=== PATIENT | male | born 1960 | race Caucasian/White ===

== ENCOUNTER 2023-10-01 14:22 | Inpatient (IN) | payer SELFPAY ==
[~2023-10-01] VITALS: Ht 170.2 cm; Wt 84.1 kg
[~2023-10-01 14:22] MED LIST: NAPROSYN500 MG PO; NO HOME MEDICATIONS; PERCOCET 325 MG1 TA2 PO
[2023-10-01 14:23] VITALS: BP 197/140; PULSE 84; TEMP 98.4
--- NOTE | 2023-10-01 14:24 | NUR ---
Pt arrived via EMS. Pt ambulated to bed without difficulty. Pt has no complaints of pain at this time. BP elevated, Dr Lopez notified
[2023-10-01] MEDS ORDERED: hydrALAZINE 20 MG/ML 1 ML VIAL IV PRN (14:30)
[2023-10-01] MEDS ORDERED: FLOMAX 0.40.4 MG/CAP PO (14:35)
[2023-10-01] MEDS ORDERED: ZESTRIL40 MG PO (14:35)
[2023-10-01] MEDS ORDERED: Ondansetron 4 MG/2 ML VIAL IV PRN (15:30)
[2023-10-01] MEDS ORDERED: Morphine 4 MG/ML VIAL IV PRN (15:30)
[2023-10-01] MEDS ORDERED: NS 1,000 ML IV SCH (15:30)
[2023-10-01 15:36] VITALS: BP 166/121; PULSE 77
[2023-10-01] MEDS ORDERED: Metoprolol Tartrate 5 MG/5 ML VIAL IV SCH (15:45)
[2023-10-01] MEDS ORDERED: Heparin 5,000 UNITS/ML 1 ML VIAL SQ SCH (16:00)
--- NOTE | 2023-10-01 16:00 | NUR ---
Pt admission has been complete. Pt very paranoid and anxious. He is unsure of when he took his medications last and when they were last filled but states that he takes his BP medication every day. Pt reports that he had a stroke a couple years ago, left his left leg weak. Pt does walk with a cane. EKG has been done and US in room right now. I have explained and educated pt on all orders up to this point. Dr Lopez has been in to see pt as well.
[2023-10-01 17:44] VITALS: BP 161/105; PULSE 69; TEMP 98.6
[2023-10-01 17:54] VITALS: BP_SYST 161
--- NOTE | 2023-10-01 18:45 | NUR ---
Pt becoming very agitated. He is upset that the room is too bright from the sun. Pulled the shades but he is still yelling about it being bright in his room. Pt then demanding ice chips. PCT gave him full cup, attempted to dump out half to minimize the amount and he refused to give me the cup. Pt annoyed that he can't just get up and walk around when he wants to. Educated it is for his safety due to having IV pole and him using cane to walk.
[2023-10-01 20:08] VITALS: BP 154/114; PULSE 83; TEMP 99
--- NOTE | 2023-10-01 20:54 | NUR ---
PT REPORTS HEADACHE, B/P ELEVATED. MEDICATED WITH APRESOLINE 10MG IVP, SCHEDULED LOPRESSOR 2.5MG IVP AND PRN MORPHINE 2MG IVP. IVF CONTINUE TO LFA, NO REDNESS OR SWELLING. IS ALERT AND ORIENTED X4. HAS A CANE AT BEDSIDE. HAS WEAKNESS WITH AMBULATING, CALLING FOR ASSIST TO BATHROOM. BED ALARM ON.
[2023-10-01 23:25] VITALS: BP 143/97; PULSE 89; TEMP 98.3
[2023-10-02 00:30] VITALS: BP_SYST 143
--- NOTE | 2023-10-02 01:26 | NUR ---
PT CALLS FOR ASSIST TO BATHROOM, VOIDS AND BACK TO BED. REPORTS HEADACHE, MORPHINE 2MG IVP GIVEN. TAKING FEW ICE CHIPS, NO N/V.
[2023-10-02 03:38] VITALS: BP 147/93; PULSE 89; TEMP 97.4
--- NOTE | 2023-10-02 04:00 | NUR ---
PTS B/P HAS IMPROVED, NOT REQUIRING IV HYDRALAZINE AT THIS TIME. REMAINS ON SCHEDULED LOPRESSOR IV Q6HRS. REMAINS NPO.
[2023-10-02 04:32] VITALS: BP_SYST 147
--- NOTE | 2023-10-02 06:26 | NUR ---
PT REFUSED LAB WORK THIS AM.
[2023-10-02 07:20] VITALS: BP 160/101; PULSE 79; TEMP 97.6
--- NOTE | 2023-10-02 08:00 | NUR ---
PCT reported to this nurse BP 166/101, prn hydralazine given per emar. pt denies pain. reports "no reason for me to be here" and would like to leave. encouraged pt to wait for hospitalist team to round, pt agreeable. fluids infusing into left forearm IV. pt denies needs at this time. call light in reach.
--- NOTE | 2023-10-02 08:58 | NUR ---
Hand Thermal Cutter and SW student attended clinical rounds with the team. Patient was agitated during rounds and yelling at staff. Patient decided to leave AMA and was escorted out by security.
--- NOTE | 2023-10-02 09:00 | NUR ---
dr gu in with patient, pt expressing frustrations and wanting to leave. AMA paperwork signed, security in with patient to escort out of hospital. INT discontinued.
[2023-10-02 09:32] VITALS: BP_SYST 160
[2023-10-02] MEDS ORDERED: CIALIS5 MG PO (09:36)
== END 2023-10-02 09:00 | disposition left against medical advice (07) | DRG 444 ==
LOC: SURG 14:22
PROVIDERS: Physician Assistant; ADMIT Hospitalist
DX: K80.00 Calculus of gallbladder with acute cholecystitis without obstruction (principal); K85.10 Biliary acute pancreatitis without necrosis or infection; I10 Essential (primary) hypertension; Z53.21 Procedure and treatment not carried out due to patient leaving prior to being seen by health care provider; I16.0 Hypertensive urgency; N28.1 Cyst of kidney, acquired; R74.01 Elevation of levels of liver transaminase levels; M54.30 Sciatica, unspecified side; Z79.899 Other long term (current) drug therapy; Z86.73 Personal history of transient ischemic attack (TIA), and cerebral infarction without residual deficits; Z87.891 Personal history of nicotine dependence
CPT/HCPCS: J0360; J1644; J2270; J2543; J7030

== ENCOUNTER 2023-11-01 12:17 | Emergency (ER) | payer MEDICAID ==
[~2023-11-01] VITALS: Ht 170.2 cm; Wt 78.6 kg
[~2023-11-01 12:17] MED LIST changes: +CIALIS5 MG PO; +FLOMAX 0.40.4 MG/CAP PO; +ZESTRIL40 MG PO
[2023-11-01 12:24] VITALS: TEMP 97.8
[2023-11-01 13:10] LABS: BASO # 0.1 K/mm3 (0.0-0.2); BASO % 0.8 % (0.0-2.0); EOS # 0.2 K/mm3 (0.0-0.7); EOS % 2.4 % (0.0-4.0); GRAN # 6.8 K/mm3 (1.4-6.5); GRAN % 69.4 % (42.2-75.2); HEMATOCRIT 52.8 % (42.0-52.0); HEMOGLOBIN 17.5 g/dl (13.5-18.0); LYMPH # 1.8 K/mm3 (1.2-3.4); LYMPH % 18.7 % (20.0-51.0); MEAN CELL VOLUME 91 fl (80.0-100.0); MEAN CORPUSCULAR HEMOGLOBIN 30 pg (27-31); MEAN CORPUSCULAR HGB CONC 33 g/dl (33.0-37.0); MEAN PLATELET VOLUME 8.8 fl (7.4-10.4); MONO # 0.8 K/mm3 (0.1-0.6); MONO % 7.9 % (1.7-9.3); PLATELET COUNT 347 K/mm3 (130-400); RED BLOOD COUNT 5.82 M/mm3 (4.20-5.60); REDCELL DISTRIBUTION WIDTH-CV 13.4 % (11.5-14.5)
[2023-11-01 13:26] LABS: ALANINE AMINOTRANSFERASE 31 U/L (0-55); ALKALINE PHOSPHATASE 108 U/L (40-150); ANION GAP 12 mmol/L (7-16); AST,SGOT 26 U/L (5-34); BILIRUBIN,TOTAL 0.7 mg/dL (0.2-1.2); BLOOD UREA NITROGEN 16 mg/dL (8-26); CALCIUM 9.9 mg/dL (8.4-10.2); CHLORIDE 107 mEq/L (98-107); CREATININE, serum 0.94 mg/dL (0.72-1.25); GLUCOSE 95 mg/dL (70-99); POTASSIUM 4.5 mEq/L (3.5-4.5); SODIUM 141 mEq/L (136-145); TOTAL PROTEIN 7.3 g/dl (6.2-8.1)
[2023-11-01 13:40] LABS: TROPONIN-I < 0.010 ng/mL (0.00-0.033)
[2023-11-01] MEDS ORDERED: NORVASC 5MG5 MG/TAB PO (13:42)
[2023-11-01 13:48] VITALS: BP 152/121; PULSE 91
== END 2023-11-01 13:48 | disposition home or self-care (01) ==
LOC: COL.ER 12:17
PROVIDERS: Personal Emergency Response Attendant
DX: I10 Essential (primary) hypertension (principal); Z79.899 Other long term (current) drug therapy

== ENCOUNTER 2023-11-29 07:35 | Observation (INO) | payer MEDICAID ==
[2023-11-29] VITALS (150 sets, daily range): BP systolic 159; BP diastolic 104; PULSE 81; TEMP 98.5; O2SAT 82–100
[~2023-11-29] VITALS: Ht 170.2 cm; Wt 79.3 kg
[~2023-11-29 07:35] MED LIST changes: +LR 1,000 ML IV SCH; +NORVASC 5MG5 MG/TAB PO
[2023-11-29] MEDS ORDERED: NS 10 ML IV ONE (07:56)
[2023-11-29] MEDS ORDERED: Lidocaine PF 2% (20 MG/ML) 5 ML VIAL ONE (07:56)
[2023-11-29] MEDS ORDERED: Ondansetron 4 MG/2 ML VIAL ONE (07:56)
[2023-11-29] MEDS ORDERED: fentaNYL 50 MCG/ML 2 ML VIAL ONE (07:56)
[2023-11-29] MEDS ORDERED: Rocuronium 50 MG/5 ML Multi-Dose VIAL ONE (07:56)
[2023-11-29] MEDS ORDERED: dexAMETHasone 10 MG/ML VIAL ONE (07:56)
--- NOTE | 2023-11-29 08:05 | NUR ---
admitted to bay 6, alert and oriented, consents signed, Hector Benites CRNA in to see and visit with patient, BP R arm 171/125, BP L arm 182/136, will let patient rest for now per Hector,
--- NOTE | 2023-11-29 08:25 | NUR ---
spoke with Hector Benites CRNA who spoke dimitris Tan will have hospitalist consult for BP management prior to surgery, Dr Soto notified of consult
[2023-11-29] MEDS ORDERED: niCARdipine 200 ML IV SCH (08:45)
--- NOTE | 2023-11-29 08:45 | NUR ---
notified by nursing offset plate preparation supervisor will transfer patient to ICU for nicardipine drip
--- NOTE | 2023-11-29 09:00 | NUR ---
explained to patient we will admit him to a different room and start a drip to lower his blood pressure so his surgery can still be completed today, he verbalizes understanding of this and is in agreement, INT started to right forearm and admission intake completed along with med reconciliation, will change into hospital gown at this time, BP 166/114 in left arm,
--- NOTE | 2023-11-29 09:30 | NUR ---
PT ARRIVED TO ICU 7 FROM AMBULATORY SURGERY. PT SCHEDULED TO HAVE LAP CHOLEY THIS AM BUT UPON ARRIVAL BP WAS 190'S/120'S. PT TRANSFERED TO ICU FOR CARDENE GTT TO DECREASE BP. PT ALERT AND ORIENTED UPON ARRIVAL AND ABLE TO TRANSFER SELF FROM WHEELCHAIR TO BED. PIV TO RIGHT FA. CARDENE GTT INITIATED PER ORDER. PT DOES APPEAR ANXIOUS BUT STATES THIS IS HIS BASELINE. PT ALSO STATES THAT HE HAS HAD A HEMORRAGIC STROKE IN THE PAST DUE TO HIGH BP. DR. WRIGHT HOPES TO STILL DO PROCEDURE TODAY IF BLOOD PRESSURE DECREASES AND LABVIEW PROGRAMMER COMFORTABLE WITH PROCEEDING. PT LIES SUPINE IN BED WITH CALL LIGHT IN REACH. DENIES FURTHER NEEDS.
--- NOTE | 2023-11-29 09:30 | NUR ---
report called to BRODY Martinez in ICU, transferred per WC to ICY room 7
--- NOTE | 2023-11-29 11:28 | NUR ---
PT EXPRESSING THAT HE DOESN'T WANT TO WAIT FOR SURGERY AND WOULD LIKE TO LEAVE AMA. THIS NURSE SPOKE WITH PT AND LET HIM KNOW I WOULD CALL [facility] AND UPDATE THEM ON CURRENT CONDITION AND THAT PRESSURE WAS DOWN TO 150/100 ON 5MG/HR ON THE CARDENE GTT. KENDAL MCCLENDON STATES THEY WILL COME AND ASSESS PT ONCE DONE WITH THEIR CURRENT CASE. PT APPEARS VERY ANXIOUS; THIS RN ASKED PT IF HE WOULD LIKE MEDICATION FOR ANXIETY AND PT DECLINED. DR. CUEVA AWARE OF CURRENT SITUATION AND IS IN WITH PT.
--- NOTE | 2023-11-29 12:34 | NUR ---
PT LEFT AMA AT THIS TIME. PRIOR TO LEAVING IV WAS REMOVED FROM RIGHT FOREARM. RISKS OF LEAVING AMA WERE EXPLAINED TO PT EXTENSIVELY BY THIS RN. AFTER RISKS WERE EXPLAINED TO PT, PT WANTED TO PROCEED WITH LEAVING AMA. AMA PAPERWORK SIGNED BY PT AND PT LEFT ICU AFTER GETTING DRESSED. PT IN POSSESSION OF ALL BELONGINGS. PT HAD CALLED HIS MOTHER PRIOR TO LEAVING TO PICK HIM UP FROM ER ENTRANCE. PT WALKED OUT OF BUILDING BY AUSTIN DELAROSA.
== END 2023-11-29 12:34 | disposition left against medical advice (07) ==
LOC: SDCO 07:35 → ICU 09:08 → SDCO 10:00 → ICU 12:34
PROVIDERS: ADMIT Surgery
DX: I16.0 Hypertensive urgency (principal); K85.90 Acute pancreatitis without necrosis or infection, unspecified; K40.90 Unilateral inguinal hernia, without obstruction or gangrene, not specified as recurrent; Z87.891 Personal history of nicotine dependence
CPT/HCPCS: G0378; G0379; J0690; J1100; J2404; J2405; J2704; J3010